=== PATIENT | male | born 1995 | race Two or more races ===

== ENCOUNTER 2024-10-13 06:33 | Emergency (ER) | payer MEDICAID, SELFPAY ==
[2024-10-13 06:40] VITALS: BP 122/76; PULSE 64; RESP 16; TEMP 36.8; O2SAT 100; BMI 25.0
--- NOTE | 2024-10-13 06:45 | PD.EDSKIN ---
ED Skin Abcess FB-RME/HPI General Chief complaint: Skin/Abscess/Foreign Body Stated complaint: RASH AND ITCHING ALL OVER Time Seen by Provider: 10/13/24 06:34 Arrival date/time: 10/13/24 06:33 29-year-old male presents emergency department today for complaints of rash and itching since yesterday Limitations: no limitations Related Data Previous Rx's ?Medication ?Instructions ?Recorded diphenhydramine HCl 25 mg capsule 25 mg PO Q8H PRN allergic symptoms 10/13/24 (Benadryl) #30 caps prednisone 10 mg tablet 30 mg (3 x 10 mg) PO BID 3 days 10/13/24 #18 tabs Allergies Allergy/AdvReac Type Severity Reaction Status Date / Time No Known Allergies Allergy Verified 11/09/22 18:15 Review of Systems Review of Systems Systems Reviewed: All systems reviewed, normal except as documented Constitutional Constitutional: Reports system reviewed and no additional complaints, except as documented, Denies fever(s) and Denies headache(s) Eyes Eyes: Reports system reviewed and no additional complaints, except as documented and Denies blurry vision ENT Ears, Nose, Mouth, and Throat: Reports system reviewed and no additional complaints, except as documented, Denies headache(s), Denies nasal congestion and Denies nasal discharge Cardiovascular Cardiovascular: Reports system reviewed and no additional complaints, except as documented, Denies chest pain and Denies dyspnea Respiratory Respiratory: Reports system reviewed and no additional complaints, except as documented, Denies chest congestion, Denies cough and Denies dyspnea Gastrointestinal Gastrointestinal: Reports system reviewed and no additional complaints, except as documented and Denies abdominal pain Integumentary/Breasts Skin/Breast: Reports system reviewed and no additional complaints, except as documented and Denies rash Neurologic Neurologic: Reports system reviewed and no additional complaints, except as documented, Reports as per HPI and Denies headache(s) Past Medical History Social History SMOKING STATUS: Never smoker ED Exam General Limitations: Present no limitations General appearance: Present alert and in no apparent distress Head Head exam: Present atraumatic Eye Eye exam: Present normal appearance, PERRL and EOMI ENT ENT exam: Present normal exam, normal oropharynx and mucous membranes moist Neck Neck exam: Present normal inspection, full ROM and trachea midline Chest Chest inspection: Present normal inspection and symmetric chest wall rise Respiratory Respiratory exam: Present normal lung sounds bilaterally Cardiovascular Cardiovascular exam: Present regular rate, normal rhythm and normal heart sounds Abdominal Exam Abdominal exam: Present soft and normal bowel sounds Extremities Exam Extremities exam: Present normal inspection and full ROM Back Exam Back exam: Present normal inspection and full ROM Neurological Exam Neurological exam: Present alert, oriented X3 and CN II-XII intact Psychiatric Psychiatric exam: Present normal affect and normal mood Skin Skin exam: Present warm, dry, intact and normal color Course Quality Measures none Orders Category Date Time Status Dexamethasone Inj [Decadron Inj] Med 10/13/24 06:45 Discontinued 10 mg IM X1 ONE DiphenhydrAMINE INJ [Benadryl Inj] Med 10/13/24 06:45 Discontinued 25 mg IM X1 ONE Famotidine [Pepcid] Med 10/13/24 06:45 Discontinued 40 mg PO X1 ONE Vital Signs Vital signs: Vital Signs Temperature 98.2 F 10/13/24 06:40 Pulse Rate 64 10/13/24 06:40 Respiratory Rate 16 10/13/24 06:40 Blood Pressure 122/76 10/13/24 06:40 Pulse Oximetry (%) 100 10/13/24 06:40 Oxygen Delivery Method Room Air 10/13/24 06:40 O2 saturation 100% room air with normal llimits Skin / Abscess / Foreign Body MDM Narrative MDM Narrative:: 29-year-old male presents emergency department today for complaints of rash and itching since yesterday On exam patient well-appearing patient does not appear toxic no acute distress Patient given medication here which improved symptoms On exam patient has no evidence of anaphylaxis Patient discharged home in no distress to follow-up with primary care doctor in the next 24 to 48 hours and for any worsening symptoms to return to the ER immediately Patient data External records reviewed:: [facility] previous records Clinical information provided by:: patient Social determinants that could affect healthcare access:: none Patient has the following chronic illnesses:: None How is presenting disease/condition affected by chronic disease/condition?: no chronic disease Evaluation data The following diagnostics were reviewed and interpreted by me:: other (specify) (N/A) Lab and/or radiology exams considered but not ordered:: Considered not ordered Interpretation Summary: N/A Medications / Prescriptions Medications or Prescriptions considered but not ordered:: Given Medication administrations:: Medication Administration History Discontinued Medications Dexamethasone Sodium Phosphate (Dexamethasone Sod Phos Inj 10 Mg/Ml Vial) 10 mg IM X1 ONE Stop: 10/13/24 06:46 Last Admin: 10/13/24 07:13 Dose: 10 mg Documented By: DO Diphenhydramine HCl (Diphenhydramine Inj 50 Mg/Ml Vial) 25 mg IM X1 ONE Stop: 10/13/24 06:46 Last Admin: 10/13/24 07:12 Dose: 25 mg Documented By: DO Famotidine (Famotidine 20 Mg Tablet) 40 mg PO X1 ONE Stop: 10/13/24 06:46 Last Admin: 10/13/24 07:12 Dose: 40 mg Documented By: DO Given Consultations Consultation(s) initiated? (list below): No Diagnosis Skin/Abscess Differential Diagnosis: abscess of skin or subcutaneous tissue and cellulitis Most likely diagnosis given after review of the tests above:: Rash/urticaria Admission Indicated Admission indicated?: not indicated Admission Request Was there a request for admission?: No Disposition Plan Disposition Plan: Discharge Discharge Attestation Discharge Attestation: The patient and all family members were given an opportunity to ask questions and understood the discharge instructions. Discharge instructions specifically effects, indications for sooner follow up or return to the emergency department, and the expected course of current diagnosis. Patient condition: Stable Discharge Plan Plan Patient Disposition: HOME (Self Care) Discharge Disposition comment: Stable Prescriptions/Referrals Prescriptions/Med Rec: New prednisone 10 mg tablet 30 mg PO BID 3 Days Qty: 18 0RF diphenhydramine HCl [Benadryl] 25 mg capsule 25 mg PO Q8H PRN (Reason: allergic symptoms) Qty: 30 0RF Problem List Clinical Impression: Urticaria Patient/Caregiver Discharge Instructions Education Materials: ED Hives (Adult) Additional Instructions: Please follow up with your primary care doctor in the next 24-48hrs for any worsening symptoms return here immediately Print Language: Romanian Stand Alone Forms: [employer] Award Info., Work/School Release, Patient Portal Info Letter PA/[employer] FLOORPERSON Supervising Physician PA/[employer] HAND[employer] F[employer]ORPERSON Supervising Physician: Dr. Swanson
[2024-10-13] MEDS: FAMOTIDINE 20 MG TABLET 40 MG PO (07:12)
[2024-10-13] MEDS: DiphenhydrAMINE INJ 50 MG/ML VIAL 25 MG IM (07:12)
[2024-10-13] MEDS: DEXAMETHASONE SOD PHOS INJ 10 MG/ML VIAL IM (07:13)
== END 2024-10-13 08:13 | disposition home or self-care (01) ==
LOC: SERX 07:57
PROVIDERS: Emergency Provider Family Medicine
DX: L50.9 Urticaria, unspecified (principal)
CPT/HCPCS: 96372; 99283; J1100; J1200; A9270